=== PATIENT | female | born 1975 | race Caucasian/White ===

== ENCOUNTER 2020-09-27 21:11 | Emergency (ER) | payer BC ==
[2020-09-27 23:45] LABS: Absolute Lymphocytes (CBC) 1.6 K/uL (0.7-4.9); Basophils % 0.6 % (0-1.3); Hematocrit 32.9 % (36.0-45.0); Lymphocytes % 26.4 % (15.3-44.8); MPV 8.9 fL (7.6-11.3)
[2020-09-27 23:48] LABS: Protime INR 1.06
[2020-09-27] MEDS ORDERED: dexAMETHasone 10 MG/ML VIAL ONE (23:55)
[2020-09-27] MEDS ORDERED: ALBUTEROL INHALER 60 PUFF/8 GM IH ONE (23:56)
[2020-09-28 00:05] LABS: ALT/SGPT 30 U/L (12-78); AST/SGOT 26 U/L (15-37); Albumin 3.4 g/dL (3.4-5.0); Alkaline Phosphatase 70 U/L (45-117); BUN Blood Urea Nitrogen 11 mg/dL (7-18); Bicarbonate 25 mmol/L (21-32); Bilirubin Direct < 0.1 mg/dL (0-0.2); Bilirubin Total 0.2 mg/dL (0.2-1.0); Ferritin 40.1 ng/mL (8-388); Glucose Level 94 mg/dL (74-106); Magnesium 2.1 mg/dL (1.8-2.4); NT PRO-BNP 30 pg/mL (<125); Potassium 3.7 mmol/L (3.5-5.1); Protein, Total 7.1 g/dL (6.4-8.2); Sodium Level 138 mmol/L (136-145); Troponin (Emerg Dept Use Only) < 0.02 ng/mL (0.0-0.045)
--- NOTE | 2020-09-28 01:25 | ER ---
Nurse's Notes [facility] Name: Yin Jensen Age: 45 yrs Sex: Female : 1975 Arrival Date: 09/27/2020 Time: 21:16 Bed 15 Private MD: Bryce Bergeron E Diagnosis: Pneumonia due to SARS-associated coronavirus Presentation: 09/27 21:30 Chief complaint: Patient states: Covid+ 09/18/2020. S/S started 09/17/2020. Past 3 days, ca1 started having fever, SOB, increased coughing. Reports SpO2 at 88 - 89% on exertion. Chest congestion. Coronavirus screen: Client denies travel out of the [place] in the last 14 days. Client reports previous positive COVID test result. Date of collection: September 18, 2020 Staff notified of need for isolation. Ebola Screen: Patient negative for fever greater than or equal to 101.5 degrees Fahrenheit, and additional compatible Ebola Virus Disease symptoms Patient denies exposure to infectious person. Patient denies travel to an Ebola-affected area in the 21 days before illness onset. No symptoms or risks identified at this time. Initial Sepsis Screen: Does the patient meet any 2 criteria? No. Patient's initial sepsis screen is negative. Does the patient have a suspected source of infection? No. Patient's initial sepsis screen is negative. Risk Assessment: Do you want to hurt yourself or someone else? Patient reports no desire to harm self or others. Onset of symptoms was September 27, 2020. 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 - Social history:: Smoking status: Patient denies any tobacco usage or history of. Screenin:15 Abuse screen: Denies threats or abuse. Nutritional screening: No deficits noted. jb4 Tuberculosis screening: No symptoms or risk factors identified. Fall Risk None identified. Assessment: 23:15 General: Appears in no apparent distress. comfortable, Behavior is calm, cooperative, jb4 appropriate for age. Pain: Denies pain. Neuro: Level of Consciousness is awake, alert, obeys commands, Oriented to person, place, time, situation. Cardiovascular: Patient's skin is warm and dry. Respiratory: Airway is patent Respiratory effort is even, unlabored, Respiratory pattern is regular, symmetrical. GI: No signs and/or symptoms were reported involving the gastrointestinal system. : No signs and/or symptoms were reported regarding the genitourinary system. EENT: No signs and/or symptoms were reported regarding the EENT system. Derm: Skin is intact, Skin is pink, warm \T\ dry. Musculoskeletal: Circulation, motion, and sensation intact. Range of motion: intact in all extremities. 09/28 00:15 Reassessment: Patient appears in no apparent distress at this time. Patient and/or jb4 family updated on plan of care and expected duration. Pain level reassessed. Patient is alert, oriented x 3, equal unlabored respirations, skin warm/dry/pink. 00:56 Reassessment: Patient appears in no apparent distress at this time. Patient and/or jb4 family updated on plan of care and expected duration. Pain level reassessed. Patient is alert, oriented x 3, equal unlabored respirations, skin warm/dry/pink. Patient denies pain at this time. Patient states feeling better. 01:53 Reassessment: Patient appears in no apparent distress at this time. Patient and/or jb4 family updated on plan of care and expected duration. Pain level reassessed. Patient is alert, oriented x 3, equal unlabored respirations, skin warm/dry/pink. Vital Signs: 09/27 21:30 BP 128 / 79; Pulse 97; Resp 20; Temp 99.3(TE); Pulse Ox 98% on R/A; Weight 99.79 kg ca1 (R); Height 5 ft. 4 in. (162.56 cm) (R); 09/28 00:30 BP 107 / 68; Pulse 91; Resp 19; Pulse Ox 98% on R/A; jb4 01:30 BP 117 / 91; Pulse 87; Resp 16; Pulse Ox 96% on R/A; jb4 09/27 21:30 Body Mass Index 37.76 (99.79 kg, 162.56 cm) ca1 ED Course: 09/27 21:16 Patient arrived in ED. es 21:16 Bryce Bergeron MD is Private Physician. es 21:34 Triage completed. ca1 21:35 Arm band placed on right wrist. ca1 23:12 Mark Lewis, RN is Primary Nurse. jb4 23:15 Patient has correct armband on for positive identification. Bed in low position. Call jb4 light in reach. Side rails up X 1. Pulse ox on. NIBP on. 23:18 Andrews Edgar NP is PHCP. pm1 23:18 Nate Carl MD is Attending Physician. pm1 23:30 Inserted saline lock: 20 gauge in right antecubital area, using aseptic technique. ds4 Blood collected. 23:55 XRAY Chest (1 view) In Process Unspecified. EDMS 09/28 00:49 CT Chest For PE Angio In Process Unspecified. EDMS 01:54 No provider procedures requiring assistance completed. IV discontinued, intact, jb4 bleeding controlled, No redness/swelling at site. Pressure dressing applied. Administered Medications: 09/27 23:55 Drug: Albuterol HFA Inhaler 2 puffs Route: Inhalation; jb4 09/28 00:25 Follow up: Response: No adverse reaction jb4 09/27 23:55 Drug: Decadron - Dexamethasone 10 mg Route: IVP; Site: right antecubital; jb4 09/28 00:25 Follow up: Response: No adverse reaction jb4 Outcome: 01:25 Discharge ordered by . pm1 01:54 Discharged to home ambulatory. jb4 01:54 Condition: stable 01:54 Discharge instructions given to patient, Instructed on discharge instructions, follow up and referral plans. medication usage, Demonstrated understanding of instructions, follow-up care, medications, Prescriptions given X 4. 01:55 Patient left the ED. jb4 Signatures: Dispatcher [employer] EDMS Shruthi Wagner es Gamal Jimenez ds4 Andrews Edgar, KAREN EXPRESS CLERK pm1 Mark Lewis, RN RN jb4 Lisa Crandall RN RN ca1
--- NOTE | 2020-09-28 01:26 | EDPHYS ---
Physician Documentation [facility] Name: Yin Jensen Age: 45 yrs Sex: Female : 1975 Arrival Date: 09/27/2020 Time: 21:16 Bed 15 Private MD: Bryce Bergeron E ED Physician Nate Carl HPI: 09/27 23:25 This 45 yrs old Female presents to ER via Ambulatory with complaints of pm1 +COVID, Breathing Difficulty, Fever. 23:25 The patient has shortness of breath at rest, with light activity. Onset: The pm1 symptoms/episode began/occurred 3 day(s) ago. Duration: The symptoms are continuous. The patient's shortness of breath is aggravated by light activity, is alleviated by sitting up, deep breathing. Associated signs and symptoms: Pertinent positives: productive cough, fever, Pertinent negatives: chest pain, nausea, vomiting, Diarrhea. Diarrhea and vomiting resolved. Severity of symptoms: in the emergency department the symptoms are worse. Diagnosed positive for covid on 09/18/2020. Patient was given vitamin regiment by clinic that diagnosed her. 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 - Social history:: Smoking status: Patient denies any tobacco usage or history of. ROS: 23:25 Eyes: Negative for injury, pain, redness, and discharge, ENT: Negative for injury, pm1 pain, and discharge, Neck: Negative for injury, pain, and swelling, Cardiovascular: Negative for chest pain, palpitations, and edema. 23:25 Abdomen/GI: Negative for abdominal pain, nausea, vomiting, diarrhea, and constipation, Back: Negative for injury and pain, MS/Extremity: Negative for injury and deformity, Skin: Negative for injury, rash, and discoloration, Neuro: Negative for headache, weakness, numbness, tingling, and seizure. 23:25 Constitutional: Positive for fever, Negative for poor PO intake. 23:25 Respiratory: Positive for cough, shortness of breath. Exam: 23:25 Constitutional: This is a well developed, well nourished patient who is awake, alert, pm1 and in no acute distress. Head/Face: Normocephalic, atraumatic. 23:25 Back: No spinal tenderness. No costovertebral tenderness. Full range of motion. Skin: Warm, dry with normal turgor. Normal color with no rashes, no lesions, and no evidence of cellulitis. MS/ Extremity: Pulses equal, no cyanosis. Neurovascular intact. Full, normal range of motion. 23:25 Cardiovascular: Exam negative for acute changes, Rate: normal, Rhythm: regular, Pulses: no pulse deficits are appreciated, Heart sounds: normal, Edema: is not appreciated. 23:25 Respiratory: Exam negative for acute changes, respiratory distress, shortness of breath, Breath sounds: are clear throughout. 23:25 Abdomen/GI: Inspection: abdomen appears normal, Palpation: abdomen is soft and non-tender, in all quadrants. 23:25 Neuro: Exam negative for acute changes, Orientation: is normal, Mentation: is normal, Motor: is normal. Vital Signs: 21:30 BP 128 / 79; Pulse 97; Resp 20; Temp 99.3(TE); Pulse Ox 98% on R/A; Weight 99.79 kg ca1 (R); Height 5 ft. 4 in. (162.56 cm) (R); 09/28 00:30 BP 107 / 68; Pulse 91; Resp 19; Pulse Ox 98% on R/A; jb4 01:30 BP 117 / 91; Pulse 87; Resp 16; Pulse Ox 96% on R/A; jb4 09/27 21:30 Body Mass Index 37.76 (99.79 kg, 162.56 cm) ca1 MDM: 09/27 23:26 Patient medically screened. pm1 09/28 00:37 Data reviewed: vital signs. pm1 01:22 Counseling: I had a detailed discussion with the patient and/or guardian regarding: the pm1 historical points, exam findings, and any diagnostic results supporting the discharge/admit diagnosis, lab results, radiology results, the need for outpatient follow up, to return to the emergency department if symptoms worsen or persist or if there are any questions or concerns that arise at home. 09/27 23:19 Order name: Basic Metabolic Panel pm1 09/27 23:19 Order name: CBC with Diff pm1 09/27 23:19 Order name: LFT's 09/27 23:19 Order name: Magnesium 09/27 23:19 Order name: NT PRO-BNP pm09/27 23:19 Order name: PT-INR 09/27 23:19 Order name: Troponin (emerg Dept Use Only); Complete Time: 00:12 pm1 09/27 23:19 Order name: D-Dimer; Complete Time: 00:01 pm09/27 23:19 Order name: Ferritin; Complete Time: 00:12 pm09/27 23:19 Order name: CRP; Complete Time: 00:12 pm09/27 23:19 Order name: Basic Metabolic Panel; Complete Time: 00:12 EDMS 09/27 23:19 Order name: CBC with Automated Diff; Complete Time: 00:01 EDMS 09/27 23:20 Order name: Liver (Hepatic) Function; Complete Time: 00:12 EDMS 09/27 23:20 Order name: Magnesium; Complete Time: 00:12 EDMS 09/27 23:19 Order name: XRAY Chest (1 view) 09/27 23:19 Order name: EKG; Complete Time: 23:20 pm09/27 23:19 Order name: Cardiac monitoring; Complete Time: 00:09 pm09/27 23:19 Order name: EKG - Nurse/Tech; Complete Time: 00:09 pm09/27 23:19 Order name: IV Saline Lock; Complete Time: 23:33 pm09/27 23:19 Order name: Labs collected and sent; Complete Time: 23:33 pm09/27 23:19 Order name: O2 Per Protocol; Complete Time: 23:22 pm09/27 23:19 Order name: O2 Sat Monitoring; Complete Time: 23:22 pm09/27 23:20 Order name: NT PRO-BNP; Complete Time: 00:12 EDMS 09/27 23:20 Order name: Protime (+INR); Complete Time: 00:01 EDMS 09/27 23:26 Order name: Flu; Complete Time: 00:26 pm09/27 23:26 Order name: Strep; Complete Time: 00:17 pm09/28 00:02 Order name: CT Chest For PE Angio pm09/28 00:14 Order name: Throat Culture EDMS Administered Medications: 09/27 23:55 Drug: Albuterol HFA Inhaler 2 puffs Route: Inhalation; 4 09/28 00:25 Follow up: Response: No adverse reaction jb4 09/27 23:55 Drug: Decadron - Dexamethasone 10 mg Route: IVP; Site: right antecubital; jb4 09/28 00:25 Follow up: Response: No adverse reaction jb Disposition: 07:04 Co-signature as Attending Physician, Nate Carl MD. 7 Disposition: 09/28/20 01:25 Discharged to Home. Impression: Pneumonia due to SARS-associated coronavirus. - Condition is Stable. - Discharge Instructions: Community-Acquired Pneumonia, Adult, COVID-19. - Prescriptions for Prednisone 20 mg Oral Tablet - take 3 tablet by ORAL route once daily for 5 days; 15 tablet. Zithromax Z- Mahin 250 mg Oral Tablet - take 1 tablet by ORAL route as directed for 5 days Day 1 - take two (2) tablets one time. Day 2, 3, 4 , 5 take one (1) tablet once daily.; 6 tablet. Albuterol Sulfate 90 mcg/actuation - inhale 1-2 puff by INHALATION route every 4-6 hours; 1 Inhaler. Guaifenesin AC 10- 100 mg/5 mL Oral Liquid - take 10 milliliter by ORAL route every 4 hours As needed; 240 milliliter. - Medication Reconciliation Form, Thank You Letter, Antibiotic Education, Prescription Opioid Use form. - Follow up: Emergency Department; When: As needed; Reason: Worsening of condition. Follow up: Private Physician; When: 2 - 3 days; Reason: Recheck today's complaints, Continuance of care, Re-evaluation by your physician. - Problem is new. - Symptoms have improved. Signatures: Dispatcher [employer] EDMS Prince Valadez, FELT HAT INSPECTOR AND PACKER-C FELT HAT INSPECTOR AND PACKER-Cla1 Andrews Edgar, TUBE COATER TUBE COATER pm1 Mark Lewis RN RN [facility] Lisa Crandall RN RN ca1 Holmes, Maurice, MD MD 7 Corrections: (The following items were deleted from the chart) 01:55 01:25 09/28/2020 01:25 Discharged to Home. Impression: Pneumonia due to SARS-associated jb4 coronavirus. Condition is Stable. Forms are Medication Reconciliation Form, Thank You Letter, Antibiotic Education, Prescription Opioid Use. Follow up: Emergency Department; When: As needed; Reason: Worsening of condition. Follow up: Private Physician; When: 2 - 3 days; Reason: Recheck today's complaints, Continuance of care, Re-evaluation by your physician. Problem is new. Symptoms have improved. pm1
[2020-09-28 02:05] VITALS: TEMP 99.3
[2020-09-28 02:07] VITALS: BP 117/91; O2SAT 96
--- NOTE | 2020-09-28 08:02 | RAD REPORT ---
EXAM DESCRIPTION: RAD - Chest Single View - 09/27/2020 11:55 pm CLINICAL HISTORY: SOB, COVID positive, fever, worsening cough COMPARISON: None TECHNIQUE: AP portable chest image was obtained 09/27/2020 11:55 pm . FINDINGS: Lungs are clear. No peripheral consolidation or mass lesions seen. Shallow inspiration, po rtable technique and body habitus accentuate the chest findings. Patient does have mild scattered air space opacities of the lung parenchyma and generally sparing each apex. In the current clinical envir onment in with the provided history this is most likely a mild COVID-19 pneumonia. Pattern can also b e seen with non COVID viral pneumonia, organizing pneumonia, and connective tissue disorders. No roshni urable pleural effusion and no pneumothorax. No acute bony abnormality seen. No acute aortic findings suspected. IMPRESSION: Mild bilateral COVID-19 pneumonia.
--- NOTE | 2020-09-29 14:49 | RAD REPORT ---
EXAM DESCRIPTION: CT - Chest For Pe Angio - 09/28/2020 1:52 am CLINICAL HISTORY: The patient is 45 years old and is Female; SOB TECHNIQUE: Axial computed tomographic angiography images of the chest with intravenous contrast. T his CT exam was performed using one or more of the following dose reduction techniques: automated e xposure control, adjustment of the mA and/or kV according to patient size, and/or use of iterative re construction technique. MIP reconstructed images were created and reviewed. Oblique reformatted images were created and reviewed. DLP: 577 mGy*cm COMPARISON: Chest radiograph from the same day. FINDINGS: PULMONARY ARTERIES: Unremarkable. No pulmonary embolism. AORTA: No acute findings. No thoracic aortic aneurysm. LUNGS: Bilateral groundglass opacities and linear densities. PLEURAL SPACE: Unremarkable. No significant effusion. No pneumothorax. HEART: Unremarkable. No cardiomegaly. No significant pericardial effusion. No evidence of RV dysfunction. BONES/JOINTS: No acute fracture. No dislocation. SOFT TISSUES: Bilateral breast implants. LYMPH NODES: Unremarkable. No enlarged lymph nodes. LIVER: Subcentimeter right hepatic hypodensity. STOMACH AND BOWEL: Sigmoid diverticulosis. IMPRESSION: 1. No pulmonary embolism. 2. Commonly reported imaging features of COVID-19 pneumonia are present. Other processes such as in fluenza pneumonia and organizing pneumonia, as can be seen with drug toxicity and connective tissue d isease, can cause similar imaging pattern. PneTyp 3. Sigmoid diverticulosis. Electronically signed by: John Toure DO 09/28/2020 1:04 AM SMALL PRODUCTS II ASSEMBLER Due to temporary technical issues with the PACS/Fluency reporting system, reports are being signed by the in house radiologists without review as a courtesy to insure prompt reporting. The interpreting radiologist is fully responsible for the content of the report.
== END 2020-09-28 01:55 | disposition home or self-care (01) ==
LOC: ER 21:11
DX: U07.1 COVID-19 (principal); J12.82 Pneumonia due to coronavirus disease 2019; F41.9 Anxiety disorder, unspecified
CPT/HCPCS: 93005; 87070; 85025; 80048; 36415; 83735; 85610; 85379; 80076; 87081; 84484; 82728; 83880; 86140; 87804 ×2; 71275; 71045; 96374; 99284; Q9967; J1100